=== PATIENT | female | born 1955 | race Caucasian/White ===

== ENCOUNTER 2023-06-26 08:50 | Day surgery (SDC) | payer MEDICARE, OTHER ==
[~2023-06-26 08:50] MED LIST: Lactated Ringers 1,000 ML IV SCH; Sodium Chloride 0.9% 10 ML Syringe FLUSH PRN; Sodium Chloride 0.9% 10 ML Syringe FLUSH SCH
[2023-06-26] MEDS ORDERED: oxyCODONE ER 10 MG TAB.ER PO SCH (09:30)
[2023-06-26] MEDS ORDERED: Pregabalin 25 MG Cap PO SCH (09:30)
[2023-06-26] MEDS ORDERED: Acetaminophen 325 MG Tab PO SCH (09:30)
[2023-06-26] MEDS ORDERED: ceFAZolin 2 GM Vial ONE (10:38)
[2023-06-26] MEDS ORDERED: Propofol 200 MG/20 ML SDV ONE ×2 (10:38→12:26)
[2023-06-26] MEDS ORDERED: Ropivacaine 0.5% 5 MG/ML 30 ML SDV ONE (10:54)
[2023-06-26] MEDS ORDERED: Phenylephrine 1% 10 MG/ML SDV ONE (11:56)
[2023-06-26] MEDS ORDERED: Dexmedetomidine 200 MCG/2 ML SDV ONE (12:27)
[2023-06-26] MEDS ORDERED: Lactated Ringers 1,000 ML IV ONE (12:30)
[2023-06-26] MEDS ORDERED: HYDROmorphone 0.5 MG/0.5 ML Syringe IVPUSH PRN (12:33)
[2023-06-26] MEDS ORDERED: Ondansetron 4 MG/2 ML SDV IVPUSH PRN (12:33)
[2023-06-26] MEDS: Morphine 8 MG, EPINEPHrine 0.3 MG, Cefuroxime 750 MG, Ketorolac 30 MG, Sodium Chloride ... PRN ×10 (12:59→13:08)
[2023-06-26] MEDS: Tranexamic Acid 1,000 MG/10 ML Vial ONE ×2 (12:59→13:16)
[2023-06-26] MEDS: Vancomycin 1 GM SDV ONE ×2 (12:59→13:16)
[2023-06-26] MEDS: Triamcinolone Acetonide 40 MG/ML 1 ML SDV ONE ×2 (13:00→13:36)
[2023-06-26] MEDS: Bupivacaine 0.25% 10 ML SDV ONE ×2 (13:00→13:36)
[2023-06-26] MEDS ORDERED: EPINEPHrine 1 MG/ML SDV ONE (13:03)
[2023-06-26] MEDS: fentaNYL 100 MCG/2 ML SDV IVPUSH PRN ×2 (13:51→14:00)
[2023-06-26] MEDS ORDERED: Acetaminophen/HYDROcodone 325-5 MG Tab PO PRN (14:29)
== END 2023-06-26 16:07 | disposition home or self-care (01) ==
LOC: JD.SDS 08:50
PROVIDERS: ATTEND Orthopaedic Surgery
DX: M17.0 Bilateral primary osteoarthritis of knee (principal); G89.29 Other chronic pain; I10 Essential (primary) hypertension; E11.9 Type 2 diabetes mellitus without complications; E78.00 Pure hypercholesterolemia, unspecified; F32.A Depression, unspecified; K21.9 Gastro-esophageal reflux disease without esophagitis; E66.01 Morbid (severe) obesity due to excess calories; Z68.42 Body mass index [BMI] 45.0-49.9, adult; Z79.899 Other long term (current) drug therapy; Z82.61 Family history of arthritis; Z79.82 Long term (current) use of aspirin; Z79.85 Long-term (current) use of injectable non-insulin antidiabetic drugs
CPT/HCPCS: 0055T; 20610; 27447; 64447; 73560; 82947; 97110; 97116; 97161; A9270; C1713; C1776; J0171; J0690; J0697; J1885; J2270; J2371; J2704; J2795; J3010; J3301; J3370; J3490; J7030; J7120; 01402